=== PATIENT | male | born 1965 | race Caucasian/White ===

== ENCOUNTER → 2018-03-28 08:48 | Outpatient (CLI) | payer BC, SELFPAY ==
--- NOTE | 2018-03-28 09:19 | XR_ITS ---
XR foot RT min 3V COMPARISON: None HISTORY: Right foot pain, clinical suspicion of plantar fasciitis TECHNIQUE: AP lateral and oblique views FINDINGS: The tarsal bones metatarsals and phalanges all appear intact with no evidence of recent or old fracture. The plantar arch is normal. There are tiny spurs of the calcaneus at insertion of plantar tendon and Achilles tendon. The soft tissues are normal. IMPRESSION: Tiny calcaneal spurs otherwise negative right foot
== END ==
PROVIDERS: PCP Family Medicine; Visit Provider Family Medicine
DX: M72.2 Plantar fascial fibromatosis (principal)
CPT/HCPCS: 73630

== ENCOUNTER → 2022-12-08 23:57 | Outpatient (CLI) | payer BC, SELFPAY ==
[2022-12-09 00:59] LABS: Alanine Aminotransferase 27 U/L (12-78); Albumin Level 3.9 g/dl (3.5-5.0); Albumin/Globulin Ratio 1.4 (1.1-1.8); Alkaline Phosphatase 160 U/L (38-126); Aspartate Amino Transferase 25 U/L (17-59); Bilirubin,Total 0.4 mg/dl (0.2-1.3); Blood Urea Nitrogen 23 mg/dl (9-20); Calcium 9.7 mg/dl (8.4-10.2); Carbon Dioxide 31 mmol/L (22.0-30.0); Chloride 100 mmol/L (98-107); Chol/HDL Ratio 3.7 (1-3.5); Cholesterol 179 mg/dl (140-200); Estimated Glomerular Filt Rate 77 ml/min (>60); GFR (African American) 94 ML/MIN (>60); Globulin 2.7 g/dL (1.3-3.2); Glucose 247 mg/dl (74-100); HDL Cholesterol 49 mg/dl (40-60); Sodium 136 mmol/L (136-145); Total Protein,Serum 6.6 g/dl (6.3-8.2); Triglycerides 289 mg/dl (30-150); VLDL Cholesterol 58 mg/dL (0-40)
[2022-12-09 01:09] LABS: Direct LDL Cholesterol 86.04 mg/dL (100-129)
[2022-12-09 03:02] LABS: Hemoglobin A1C 11.7 % (4.0-6.0)
== END ==
PROVIDERS: PCP Family Medicine; Visit Provider Family Medicine
DX: E11.9 Type 2 diabetes mellitus without complications (principal); E78.1 Pure hyperglyceridemia; Z79.4 Long term (current) use of insulin
CPT/HCPCS: 80053; 80061; 83036

== ENCOUNTER → 2023-05-05 11:08 | Outpatient (CLI) | payer BC, SELFPAY ==
[2023-05-05 19:08] LABS: Alanine Aminotransferase 30 U/L (12-78); Albumin Level 4.1 g/dl (3.5-5.0); Albumin/Globulin Ratio 1.5 (1.1-1.8); Alkaline Phosphatase 151 U/L (38-126); Anion Gap 13.1 mEq/L (5-15); Aspartate Amino Transferase 25 U/L (17-59); Bilirubin,Total 0.5 mg/dl (0.2-1.3); Blood Urea Nitrogen 23 mg/dl (9-20); Calcium 9.2 mg/dl (8.4-10.2); Carbon Dioxide 26 mmol/L (22.0-30.0); Chloride 98 mmol/L (98-107); Chol/HDL Ratio 3.6 (1-3.5); Cholesterol 214 mg/dl (140-200); Estimated Glomerular Filt Rate 87 ml/min (>60); GFR (African American) 105 ML/MIN (>60); Globulin 2.7 g/dL (1.3-3.2); Glucose 236 mg/dl (74-100); HDL Cholesterol 60 mg/dl (40-60); Potassium 4.1 mmoL/L (3.5-5.1); Sodium 133 mmol/L (136-145); Total Protein,Serum 6.8 g/dl (6.3-8.2); Triglycerides 238 mg/dl (30-150); VLDL Cholesterol 48 mg/dL (0-40)
[2023-05-05 19:14] LABS: Basophils % 0.3 % (0.1-2.0); Eosinophils # 0.6 K/mm3 (0.0-0.4); Hematocrit 46.5 % (42.0-52.0); Hemoglobin 15.6 g/dL (14.1-18.0); Lymphocytes # 2.6 K/mm3 (0.7-4.5); Lymphocytes % 31.4 % (10-50); Mean Corpuscular HGB Conc 33.5 g/dL (31.8-35.4); Mean Corpuscular Volume 86.5 fl (80-94); Mean Platelet Volume 8.8 fl (7.4-10.4); Monocytes # 0.6 K/mm3 (0.1-1.0); Monocytes % 7.6 % (1.7-9.3); Neutrophils # 4.5 K/mm3 (1.8-7.8); Neutrophils % 53.8 % (37.0-80.0); Platelet Count 308 K/mm3 (142-424); Red Blood Count 5.38 M/mm3 (4.60-6.20); Red Cell Distribution Width 14.5 % (11.5-17.5); White Blood Count 8.3 K/mm3 (4.8-10.8)
[2023-05-05 19:21] LABS: Direct LDL Cholesterol 105.35 mg/dL (100-129)
[2023-05-05 19:40] LABS: Prostate Specific Ag Screen 0.9 ng/ml (0.0-4.0); Thyroid Stimulating Hormone 2.44 uIU/mL (0.465-4.68)
[2023-05-05 20:30] LABS: Hemoglobin A1C 12.3 % (4.0-6.0)
== END ==
PROVIDERS: PCP Family Medicine; Visit Provider Family Medicine
DX: E11.9 Type 2 diabetes mellitus without complications (principal); I10 Essential (primary) hypertension; Z79.4 Long term (current) use of insulin; Z79.899 Other long term (current) drug therapy
CPT/HCPCS: 80053; 80061; 83036; 84443; 85025; G0103

== ENCOUNTER 2023-11-15 19:03 | Outpatient (CLI) | payer BC, SELFPAY ==
[2023-11-15 23:32] LABS: Barbiturates Screen,Urine Negative ng/ml (<200)
[2023-11-15 23:34] LABS: Benzodiazepines Screen,Urine Positive ng/ml (<200); Cocaine Screen,Urine Negative ng/ml (<300)
[2023-11-15 23:35] LABS: Phencyclidine Screen,Urine Negative ng/ml (<25)
[2023-11-15 23:36] LABS: Methadone Screen,Urine Negative ng/ml (<300)
[2023-11-15 23:37] LABS: Opiate Screen,Urine Negative ng/ml (<300)
[2023-11-15 23:40] LABS: Cannabinoid Screen,Urine Negative ng/ml (<50)
[2023-11-18 19:05] LABS: Basophils % 0.3 % (0.1-2.0); Eosinophils # 0.2 K/mm3 (0.0-0.4); Eosinophils % 2.5 % (0.1-12.0); Hematocrit 48.2 % (42.0-52.0); Hemoglobin 16.3 g/dL (14.1-18.0); Lymphocytes % 24.5 % (10-50); Mean Corpuscular HGB Conc 33.8 g/dL (31.8-35.4); Mean Corpuscular Hemoglobin 30.6 pg (27.0-31.2); Mean Corpuscular Volume 90.5 fl (80-94); Mean Platelet Volume 9.4 fl (7.4-10.4); Monocytes # 0.6 K/mm3 (0.1-1.0); Monocytes % 6.9 % (1.7-9.3); Neutrophils # 5.5 K/mm3 (1.8-7.8); Neutrophils % 65.7 % (37.0-80.0); Platelet Count 325 K/mm3 (142-424); Red Blood Count 5.33 M/mm3 (4.60-6.20); Red Cell Distribution Width 13.9 % (11.5-17.5); White Blood Count 8.3 K/mm3 (4.8-10.8)
[2023-11-18 19:17] LABS: Alanine Aminotransferase 25 U/L (12-78); Albumin Level 3.7 g/dl (3.5-5.0); Albumin/Globulin Ratio 1.4 (1.1-1.8); Alkaline Phosphatase 106 U/L (38-126); Anion Gap 11.2 mEq/L (5-15); Aspartate Amino Transferase 28 U/L (17-59); Bilirubin,Total 0.4 mg/dl (0.2-1.3); Blood Urea Nitrogen 22 mg/dl (9-20); Calcium 9.2 mg/dl (8.4-10.2); Carbon Dioxide 27 mmol/L (22.0-30.0); Chloride 102 mmol/L (98-107); Chol/HDL Ratio 3.2 (1-3.5); Cholesterol 144 mg/dl (140-200); Estimated Glomerular Filt Rate 77 ml/min (>60); GFR (African American) 93 ML/MIN (>60); Globulin 2.6 g/dL (1.3-3.2); Glucose 127 mg/dl (74-100); HDL Cholesterol 45 mg/dl (40-60); Potassium 4.2 mmoL/L (3.5-5.1); Sodium 136 mmol/L (136-145); Total Protein,Serum 6.3 g/dl (6.3-8.2); Triglycerides 120 mg/dl (30-150); VLDL Cholesterol 24 mg/dL (0-40)
[2023-11-18 19:28] LABS: Direct LDL Cholesterol 79.27 mg/dL (100-129)
[2023-11-18 20:20] LABS: Hemoglobin A1C 8.9 % (4.0-6.0)
[2023-11-19 07:13] LABS: Amphetamine Positive (.); Amphetamine (GC/MS) 1577 ng/mL (Cutoff=500); Amphetamines Positive (.); Methamphetamine Positive (.); Methamphetamine (GC/MS) >3000 ng/mL (Cutoff=500)
== END 2023-11-15 23:59 ==
LOC: LAB.DROPOF 19:03
PROVIDERS: PCP Family Medicine; Visit Provider Family Medicine
DX: Z79.899 Other long term (current) drug therapy (principal); E11.65 Type 2 diabetes mellitus with hyperglycemia; E78.5 Hyperlipidemia, unspecified; Z79.4 Long term (current) use of insulin; Z79.84 Long term (current) use of oral hypoglycemic drugs; Z79.85 Long-term (current) use of injectable non-insulin antidiabetic drugs
CPT/HCPCS: 80053; 80061; 80307; 80324; 83036; 85025

== ENCOUNTER 2024-06-07 09:49 | Outpatient (CLI) | payer BC, SELFPAY ==
[2024-06-07 19:44] LABS: Hemoglobin A1C 8.5 % (4.0-6.0)
[2024-06-07 20:42] LABS: Albumin Level 3.6 g/dl (3.5-5.0); Chloride 104 mmol/L (98-107); Sodium 135 mmol/L (136-145)
[2024-06-07 20:43] LABS: Potassium 3.8 mmoL/L (3.5-5.1)
[2024-06-07 20:45] LABS: Alanine Aminotransferase 21 U/L (12-78); Albumin/Globulin Ratio 1.3 (1.1-1.8); Alkaline Phosphatase 116 U/L (38-126); Anion Gap 10.8 mEq/L (5-15); Aspartate Amino Transferase 22 U/L (17-59); Bilirubin,Total 0.6 mg/dl (0.2-1.3); Blood Urea Nitrogen 19 mg/dl (9-20); Carbon Dioxide 24 mmol/L (22.0-30.0); Cholesterol 166 mg/dl (140-200); Estimated Glomerular Filt Rate 87 ml/min (>60); GFR (African American) 105 ML/MIN (>60); Globulin 2.7 g/dL (1.3-3.2); Total Protein,Serum 6.3 g/dl (6.3-8.2); Triglycerides 173 mg/dl (30-150); VLDL Cholesterol 35 mg/dL (0-40)
[2024-06-07 20:46] LABS: Calcium 9.1 mg/dl (8.4-10.2); Chol/HDL Ratio 3.9 (1-3.5); Glucose 176 mg/dl (74-100); HDL Cholesterol 43 mg/dl (40-60)
[2024-06-07 20:59] LABS: Direct LDL Cholesterol 84.57 mg/dL (100-129)
[2024-06-07 21:20] LABS: Thyroid Stimulating Hormone 1.74 uIU/mL (0.465-4.68)
[2024-06-07 22:28] LABS: Vitamin B12 288 pg/mL (239-931)
== END 2024-06-07 23:59 | disposition home or self-care (01) ==
LOC: LAB.DROPOF 06-08 09:50
PROVIDERS: PCP Nurse Practitioner; Visit Provider Nurse Practitioner
DX: E11.9 Type 2 diabetes mellitus without complications (principal); Z79.4 Long term (current) use of insulin; I10 Essential (primary) hypertension; E78.1 Pure hyperglyceridemia; E66.01 Morbid (severe) obesity due to excess calories; Z68.41 Body mass index [BMI] 40.0-44.9, adult; F41.1 Generalized anxiety disorder; E78.2 Mixed hyperlipidemia
CPT/HCPCS: 80053; 80061; 82306; 82607; 83036; 84443

== ENCOUNTER 2024-12-04 08:30 | Outpatient (CLI) | payer BC, SELFPAY ==
[2024-12-04 19:51] LABS: Basophils % 0.3 % (0.1-2.0); Eosinophils # 0.4 K/mm3 (0.0-0.4); Eosinophils % 4.7 % (0.1-12.0); Hematocrit 49.3 % (42.0-52.0); Hemoglobin 16.8 g/dL (14.1-18.0); Lymphocytes # 2.4 K/mm3 (0.7-4.5); Lymphocytes % 27.6 % (10-50); Mean Corpuscular HGB Conc 34.1 g/dL (31.8-35.4); Mean Corpuscular Hemoglobin 29.5 pg (27.0-31.2); Mean Corpuscular Volume 86.6 fl (80-94); Mean Platelet Volume 10.7 fl (7.4-10.4); Monocytes # 0.8 K/mm3 (0.1-1.0); Monocytes % 8.7 % (1.7-9.3); Neutrophils % 58.5 % (37.0-80.0); Platelet Count 310 K/mm3 (142-424); Red Blood Count 5.69 M/mm3 (4.60-6.20); Red Cell Distribution Width 13.5 % (11.5-17.5); White Blood Count 8.6 K/mm3 (4.8-10.8)
[2024-12-04 20:02] LABS: Creatinine,Urine Random 31 mg/dL (Not Estab.)
[2024-12-04 20:57] LABS: Alanine Aminotransferase 25 U/L (12-78); Albumin Level 3.7 g/dl (3.5-5.0); Albumin/Globulin Ratio 1.7 (1.1-1.8); Alkaline Phosphatase 105 U/L (38-126); Anion Gap 12.1 mEq/L (5-15); Aspartate Amino Transferase 24 U/L (17-59); Bilirubin,Total 0.3 mg/dl (0.2-1.3); Blood Urea Nitrogen 26 mg/dl (9-20); Calcium 9.6 mg/dl (8.4-10.2); Carbon Dioxide 27 mmol/L (22.0-30.0); Chloride 103 mmol/L (98-107); Chol/HDL Ratio 4.6 (1-3.5); Cholesterol 201 mg/dl (140-200); Estimated Glomerular Filt Rate 87 ml/min (>60); GFR (African American) 105 ML/MIN (>60); Globulin 2.2 g/dL (1.3-3.2); Glucose 105 mg/dl (74-100); HDL Cholesterol 44 mg/dl (40-60); Potassium 4.1 mmoL/L (3.5-5.1); Sodium 138 mmol/L (136-145); Total Protein,Serum 5.9 g/dl (6.3-8.2); Triglycerides 170 mg/dl (30-150); VLDL Cholesterol 34 mg/dL (0-40)
[2024-12-04 21:17] LABS: Microalbumin/Creatinine Ratio 5341.6
[2024-12-04 21:20] LABS: Direct LDL Cholesterol 108.34 mg/dL (100-129)
[2024-12-04 21:47] LABS: Prostate Specific Ag Screen 1.1 ng/ml (0.0-4.0); Thyroid Stimulating Hormone 2.44 uIU/mL (0.465-4.68)
== END 2024-12-04 23:59 | disposition home or self-care (01) ==
LOC: LAB.DROPOF 12-05 09:38
PROVIDERS: PCP Family Medicine; Visit Provider Family Medicine
DX: E11.9 Type 2 diabetes mellitus without complications (principal); Z79.4 Long term (current) use of insulin; I10 Essential (primary) hypertension
CPT/HCPCS: 80053; 80061; 82043; 82570; 84443; 85025; G0103

== ENCOUNTER 2025-04-27 08:26 | Outpatient (CLI) | payer BC, SELFPAY ==
[2025-04-27 18:37] LABS: Basophils % 0.3 % (0.1-2.0); Eosinophils # 0.2 Kmm3 (0.0-0.4); Hemoglobin 15.7 g/dL (14.1-18.0); Immature Granulocytes # 0.03 10^3uL; Immature Granulocytes % 0.3 %; Lymphocytes # 2.4 K/mm3 (0.7-4.5); Lymphocytes % 26.3 % (10-50); Mean Corpuscular HGB Conc 34.1 g/dL (31.8-35.4); Mean Corpuscular Hemoglobin 29.7 pg (27.0-31.2); Mean Corpuscular Volume 87.1 fl (80-94); Mean Platelet Volume 10.5 fl (7.4-10.4); Monocytes # 0.9 K/mm3 (0.1-1.0); Monocytes % 10.2 % (1.7-9.3); Neutrophils # 5.5 K/mm3 (1.8-7.8); Neutrophils % 60.9 % (37.0-80.0); Nucleated Red Blood Cells # 0 10^3/uL; Nucleated Red Blood Cells % 0 %; Platelet Count 354 K/mm3 (142-424); Red Blood Count 5.28 M/mm3 (4.60-6.20); White Blood Count 9.1 K/mm3 (4.8-10.8)
[2025-04-27 19:01] LABS: Hemoglobin A1C 9.6 % (4.0-6.0)
[2025-04-27 19:02] LABS: Alanine Aminotransferase 17 U/L (12-78); Aspartate Amino Transferase 20 U/L (17-59); Blood Urea Nitrogen 20 mg/dl (9-20); Carbon Dioxide 25 mmol/L (22.0-30.0); Cholesterol 120 mg/dl (140-200); Estimated Glomerular Filt Rate 76 ml/min (>60); GFR (African American) 93 ML/MIN (>60); Total Protein,Serum 6.3 g/dl (6.3-8.2); Triglycerides 153 mg/dl (30-150); VLDL Cholesterol 31 mg/dL (0-40)
[2025-04-27 19:03] LABS: Alkaline Phosphatase 86 U/L (38-126); Bilirubin,Total 0.4 mg/dl (0.2-1.3); Calcium 9.5 mg/dl (8.4-10.2); Chol/HDL Ratio 2.9 (1-3.5); Glucose 58 mg/dl (74-100); HDL Cholesterol 41 mg/dl (40-60)
[2025-04-27 19:07] LABS: Albumin Level 4.1 g/dl (3.5-5.0); Albumin/Globulin Ratio 1.9 (1.1-1.8); Globulin 2.2 g/dL (1.3-3.2)
[2025-04-27 19:08] LABS: Potassium 3.6 mmoL/L (3.5-5.1); Sodium 137 mmol/L (136-145)
[2025-04-27 19:14] LABS: Direct LDL Cholesterol 46.49 mg/dL (100-129)
[2025-04-27 19:33] LABS: Thyroid Stimulating Hormone 1.56 uIU/mL (0.465-4.68)
[2025-04-27 19:38] LABS: 25-OH Vitamin D, Total 13.7 ng/mL (30-100)
[2025-04-27 19:47] LABS: Anion Gap 16.6 mEq/L (5-15); Chloride 99 mmol/L (98-107)
[2025-04-27 20:10] LABS: Creatinine,Urine Random 76 mg/dL (Not Estab.); Microalbumin > 1140.000 mg/L (0-16.7)
[2025-04-27 20:40] LABS: Vitamin B12 257 pg/mL (239-931)
--- OUTSIDE RECORDS SUMMARY | 2025-04-28 08:28 | XMS_ITS ---
Author Organization Unknown Medications Medication Instructions Effective Dates (start - stop) Status simvastatin 20 MG Oral Tablet 20 22-09-09:00:00.000+00 :00 - Completed simvastatin 40 MG Oral Tablet 20 23-05-05:00:00.000+00 :00 - Completed sertraline 100 MG Oral Tablet 20 22-10-17:00:00.000+00 :00 - Completed sertraline 100 MG Oral Tablet 20 22-06-23:00:00.000+00 :00 - Completed simvastatin 40 MG Oral Tablet 20 23-03-08:00:00.000+00 :00 - Completed lisinopril 40 MG Oral Tablet 01-05-17:00:00.000+00 :00 - Completed lisinopril 40 MG Oral Tablet 12-31-00:00:00.000+00 :00 - Completed sertraline 100 MG Oral Tablet 20 22-01-28:00:00.000+00 :00 - Completed sertraline 100 MG Oral Tablet 20 23-07-27:00:00.000+00 :00 - Completed sertraline 100 MG Oral Tablet 20 23-04-05:00:00.000+00 :00 - Completed sertraline 100 MG Oral Tablet 20 23-11-18:00:00.000+00 :00 - Completed lisinopril 40 MG Oral Tablet 202 01-01-14:00:00.000+00 :00 - Completed lisinopril 40 MG Oral Tablet 202 01-05-20:00:00.000+00 :00 - Completed sertraline 100 MG Oral Tablet 20 24-12-15:00:00.000+00 :00 - Completed simvastatin 40 MG Oral Tablet 20 21-02-10:00:00.000+00 :00 - Completed simvastatin 40 MG Oral Tablet 20 21-01-14:00:00.000+00 :00 - Completed lisinopril 40 MG Oral Tablet 202 01-04-08:00:00.000+00 :00 - Completed lisinopril 40 MG Oral Tablet 202 12-10-26:00:00.000+00 :00 - Completed lisinopril 40 MG Oral Tablet 202 01-02-10:00:00.000+00 :00 - Completed simvastatin 40 MG Oral Tablet 20 23-04-05:00:00.000+00 :00 - Completed sertraline 100 MG Oral Tablet 22-09-09:00:00.000+00 :00 - Completed glimepiride 4 MG Oral Tablet 202 12-09-22:00:00.000+00 :00 - Completed glimepiride 4 MG Oral Tablet 202 01-01-27:00:00.000+00 :00 - Completed amlodipine 5 MG Oral Tablet 2021:00:00.000+00 :00 - Completed alprazolam 1 MG Oral Tablet 2021:00:00.000+00 :00 - Completed amlodipine 10 MG Oral Tablet 01-05-05:00:00.000+00 :00 - Completed amlodipine 5 MG Oral Tablet 2022:00:00.000+00 :00 - Completed glimepiride 4 MG Oral Tablet 202 12-30-22:00:00.000+00 :00 - Completed glimepiride 4 MG Oral Tablet 202 12-12-08:00:00.000+00 :00 - Completed glimepiride 4 MG Oral Tablet 202 01-01-20:00:00.000+00 :00 - Completed amlodipine 5 MG Oral Tablet 2022:00:00.000+00 :00 - Completed glimepiride 4 MG Oral Tablet 202 12-08-24:00:00.000+00 :00 - Completed amlodipine 5 MG Oral Tablet 2022:00:00.000+00 :00 - Completed glimepiride 4 MG Oral Tablet 202 12-11-12T00:00:00.000+00 :00 - Completed amlodipine 5 MG Oral Tablet 2021:00:00.000+00 :00 - Completed glimepiride 4 MG Oral Tablet 12-13-16:00:00.000+00 :00 - Completed amlodipine 5 MG Oral Tablet 2022:00:00.000+00 :00 - Completed amlodipine 5 MG Oral Tablet 2021:00:00.000+00 :00 - Completed amlodipine 5 MG Oral Tablet 2021:00:00.000+00 :00 - Completed amlodipine 5 MG Oral Tablet 2022:00:00.000+00 :00 - Completed amlodipine 5 MG Oral Tablet 2021:00:00.000+00 :00 - Completed - 1911-03-27X15:00 :00.000+00 :00 - Completed glimepiride 4 MG Oral Tablet 01-03-25:00:00.000+00 :00 - Completed tramadol hydrochloride 50 MG Oral Tablet 8223-30-36C63:00:00.000+00 :00 - Completed - 5402-72-12R81:00 :00.000+00 :00 - Completed - 3672-92-57B93:00 :00.000+00 :00 - Completed tramadol hydrochloride 50 MG Oral Tablet 4865-78-01B78:00:00.000+00 :00 - Completed - 8494-00-79Y78:00 :00.000+00 :00 - Completed alprazolam 1 MG Oral Tablet 2021:00:00.000+00 :00 - Completed tramadol hydrochloride 50 MG Oral Tablet 0999-81-10B31:00:00.000+00 :00 - Completed tramadol hydrochloride 50 MG Oral Tablet 1111-41-03V37:00:00.000+00 :00 - Completed tramadol hydrochloride 50 MG Oral Tablet 3722-56-54S76:00:00.000+00 :00 - Completed tramadol hydrochloride 50 MG Oral Tablet 3347-11-39N12:00:00.000+00 :00 - Completed alprazolam 1 MG Oral Tablet 2021:00:00.000+00 :00 - Completed - 6217-26-97V37:00 :00.000+00 :00 - Completed sertraline 100 MG Oral Tablet 23-03-01:00:00.000+00 :00 - Completed tramadol hydrochloride 50 MG Oral Tablet 6068-73-19E19:00:00.000+00 :00 - Completed tramadol hydrochloride 50 MG Oral Tablet 0801-59-90T76:00:00.000+00 :00 - Completed - 3475-58-63M68:00 :00.000+00 :00 - Completed tramadol hydrochloride 50 MG Oral Tablet 8590-88-55T86:00:00.000+00 :00 - Completed tramadol hydrochloride 50 MG Oral Tablet 7171-71-89I43:00:00.000+00 :00 - Completed glimepiride 4 MG Oral Tablet 01-04-23:00:00.000+00 :00 - Completed glimepiride 4 MG Oral Tablet 01-03-01:00:00.000+00 :00 - Completed alprazolam 1 MG Oral Tablet 2021:00:00.000+00 :00 - Completed alprazolam 1 MG Oral Tablet 2022:00:00.000+00 :00 - Completed alprazolam 1 MG Oral Tablet 2022:00:00.000+00 :00 - Completed alprazolam 1 MG Oral Tablet 2022:00:00.000+00 :00 - Completed alprazolam 1 MG Oral Tablet 2021:00:00.000+00 :00 - Completed alprazolam 1 MG Oral Tablet 2022:00:00.000+00 :00 - Completed alprazolam 1 MG Oral Tablet 2022:00:00.000+00 :00 - Completed alprazolam 1 MG Oral Tablet 2021:00:00.000+00 :00 - Completed 3 ML insulin glargine 100 UN T/ML Pen Injector [[employer]] 8519-56-80J99:00:00.000+00 :00 - Completed gemfibrozil 600 MG Oral Tablet 2 544-28-32W48:00:00.000+00 :00 - Completed 3 ML insulin glargine 100 UN T/ML Pen Injector [[employer]romed[employer]aglar] 1629-34-39C38:00:00.000+00 :00 - Completed sertraline 100 MG Oral Tablet 23-05-05:00:00.000+00 :00 - Completed gemfibrozil 600 MG Oral Tablet 203-74-53S92:00:00.000+00 :00 - Completed 3 ML insulin glargine 100 UN T/ML Pen Injector [[employer]ed[employer]] 9449-09-13B51:00:00.000+00 :00 - Completed 3 ML insulin glargine 100 UN T/ML Pen Injector [[employer]] 4442-06-23W59:00:00.000+00 :00 - Completed 0.5 ML dulaglutide 3 MG/ML Auto-Injector [Trulicity] 2525-83-20X99:00:00.000+00 :00 - Completed 0.5 ML dulaglutide 3 MG/ML Auto-Injector [Qumuulicity] 3244-23-66T31:00:00.000+00 :00 - Completed 0.5 ML dulaglutide 3 MG/ML Auto-Injector [Trulicity] 3088-92-68R12:00:00.000+00 :00 - Completed 3 ML insulin glargine 100 UN T/ML Pen Injector [[employer]] 4234-50-78K91:00:00.000+00 :00 - Completed 0.5 ML dulaglutide 3 MG/ML Auto-Injector [[employer]] 5965-02-01I98:00:00.000+00 :00 - Completed gemfibrozil 600 MG Oral Tablet 2 835-75-45S63:00:00.000+00 :00 - Completed 3 ML insulin glargine 100 UN T/ML Pen Injector [[employer]romed[employer]aglar] 3777-61-91U80:00:00.000+00 :00 - Completed 0.5 ML dulaglutide 3 MG/ML Auto-Injector [Trulicity] 4313-82-07R88:00:00.000+00 :00 - Completed 0.5 ML dulaglutide 3 MG/ML Auto-Injector [Trulicity] 6675-03-89G82:00:00.000+00 :00 - Completed 0.5 ML dulaglutide 3 MG/ML Auto-Injector [Trulicity] 7318-44-37G32:00:00.000+00 :00 - Completed gemfibrozil 600 MG Oral Tablet 2 237-06-59N35:00:00.000+00 :00 - Completed 3 ML insulin glargine 100 UN T/ML Pen Injector [[employer]] 1056-61-96C07:00:00.000+00 :00 - Completed gemfibrozil 600 MG Oral Tablet 2 587-21-09E74:00:00.000+00 :00 - Completed 0.5 ML dulaglutide 3 MG/ML Auto-Injector [Trulicity] 4316-50-73H52:00:00.000+00 :00 - Completed 3 ML insulin glargine 100 UN T/ML Pen Injector [[employer]] 0351-05-19J53:00:00.000+00 :00 - Completed 3 ML insulin glargine 100 UN T/ML Pen Injector [[employer]] 5055-19-60Y07:00:00.000+00 :00 - Completed cephalexin 500 MG Oral Capsule 2 062-80-74R00:00:00.000+00 :00 - Completed 3 ML insulin glargine 100 UN T/ML Pen Injector [[employer]] 9026-11-97Q45:00:00.000+00 :00 - Completed 3 ML insulin glargine 100 UN T/ML Pen Injector [[employer]ed[employer]lar] 6035-58-46Y40:00:00.000+00 :00 - Completed gemfibrozil 600 MG Oral Tablet 2 571-20-87S43:00:00.000+00 :00 - Completed gemfibrozil 600 MG Oral Tablet 2 138-00-92Y63:00:00.000+00 :00 - Completed gemfibrozil 600 MG Oral Tablet 2 288-17-32E27:00:00.000+00 :00 - Completed simvastatin 20 MG Oral Tablet 20 22-08-12:00:00.000+00 :00 - Completed simvastatin 20 MG Oral Tablet 20 23-07-12:00:00.000+00 :00 - Completed simvastatin 20 MG Oral Tablet 20 22-06-13:00:00.000+00 :00 - Completed gemfibrozil 600 MG Oral Tablet 2 885-96-40M12:00:00.000+00 :00 - Completed gemfibrozil 600 MG Oral Tablet 2 524-61-88A21:00:00.000+00 :00 - Completed simvastatin 20 MG Oral Tablet 20 22-10-17:00:00.000+00 :00 - Completed simvastatin 20 MG Oral Tablet 20 23-11-17:00:00.000+00 :00 - Completed simvastatin 20 MG Oral Tablet 20 24-12-15:00:00.000+00 :00 - Completed gemfibrozil 600 MG Oral Tablet 2 627-64-79X30:00:00.000+00 :00 - Completed hydrochlorothiazide 25 MG / triamterene 37.5 MG Oral Tablet 1269-46-81O41:00:00.00 0+00 :00 - Completed hydrochlorothiazide 25 MG / triamterene 37.5 MG Oral Tablet 2682-46-88T22:00:00.00 0+00 :00 - Completed hydrochlorothiazide 25 MG / triamterene 37.5 MG Oral Tablet 7116-21-92Y52:00:00.00 0+00 :00 - Completed hydrochlorothiazide 25 MG / triamterene 37.5 MG Oral Tablet 2943-33-81E55:00:00.00 0+00 :00 - Completed 24 HR dapagliflozin 5 MG / m etformin hydrochloride 1000 MG Extended Release Oral Tablet [Xigduo] 3224-68-17D51:00:00.000+0 0 :00 - Completed 24 HR dapagliflozin 5 MG / m etformin hydrochloride 1000 MG Extended Release Oral Tablet [Xigduo] 9686-29-04L20:00:00.000+0 0 :00 - Completed 24 HR dapagliflozin 5 MG / m etformin hydrochloride 1000 MG Extended Release Oral Tablet [Xigduo] 0886-02-58C18:00:00.000+0 0 :00 - Completed hydrochlorothiazide 25 MG / triamterene 37.5 MG Oral Tablet 4414-90-35Q58:00:00.00 0+00 :00 - Completed 24 HR dapagliflozin 5 MG / m etformin hydrochloride 1000 MG Extended Release Oral Tablet [Xigduo] 2555-34-76R51:00:00.000+0 0 :00 - Completed hydrochlorothiazide 25 MG / triamterene 37.5 MG Oral Tablet 4351-04-02S42:00:00.00 0+00 :00 - Completed hydrochlorothiazide 25 MG / triamterene 37.5 MG Oral Tablet 9214-34-15I02:00:00.00 0+00 :00 - Completed hydrochlorothiazide 25 MG / triamterene 37.5 MG Oral Tablet 5260-23-88P39:00:00.00 0+00 :00 - Completed 24 HR dapagliflozin 5 MG / m etformin hydrochloride 1000 MG Extended Release Oral Tablet [Xigduo] 6701-10-74S43:00:00.000+0 0 :00 - Completed 24 HR dapagliflozin 5 MG / m etformin hydrochloride 1000 MG Extended Release Oral Tablet [Xigduo] 2245-40-47Y19:00:00.000+0 0 :00 - Completed hydrochlorothiazide 25 MG / triamterene 37.5 MG Oral Tablet 4732-79-40D04:00:00.00 0+00 :00 - Completed hydrochlorothiazide 25 MG / triamterene 37.5 MG Oral Tablet 7063-29-60Z63:00:00.00 0+00 :00 - Completed 24 HR dapagliflozin 5 MG / m etformin hydrochloride 1000 MG Extended Release Oral Tablet [Xigduo] 4212-09-86D98:00:00.000+0 0 :00 - Completed 24 HR dapagliflozin 5 MG / m etformin hydrochloride 1000 MG Extended Release Oral Tablet [Xigduo] 4068-30-64C28:00:00.000+0 0 :00 - Completed 24 HR dapagliflozin 5 MG / m etformin hydrochloride 1000 MG Extended Release Oral Tablet [Xigduo] 9960-93-55L71:00:00.000+0 0 :00 - Completed hydrochlorothiazide 25 MG / triamterene 37.5 MG Oral Tablet 6955-78-81M05:00:00.00 0+00 :00 - Completed sulfamethoxazole 800 MG / trimethoprim 160 MG Oral Tablet 7875-61-77O26:00:00.00 0+00 :00 - Completed hydrochlorothiazide 25 MG / triamterene 37.5 MG Oral Tablet 7657-91-18O62:00:00.00 0+00 :00 - Completed 24 HR dapagliflozin 5 MG / m etformin hydrochloride 1000 MG Extended Release Oral Tablet [Xigduo] 4987-11-19Z08:00:00.000+0 0 :00 - Completed 24 HR dapagliflozin 5 MG / m etformin hydrochloride 1000 MG Extended Release Oral Tablet [Xigduo] [id number]:00:00.000+0 0 :00 - Completed Patient Care team information Name Category Status Period Participants - - Proposed period not known -
--- OUTSIDE RECORDS SUMMARY | 2025-04-28 08:28 | XMS_ITS | Clinical Summary ---
Author Organization [facility] [place] Address [address] [place] [address] Phone Care Team Providers Care Pipe Crew Foreman Name Role Phone Unavailable Primary Care Provider Unavailabl e Allergies No known active allergies Medications gemfibroziL (LOPID) 600 mg Oral Tablet Take 600 mg by mouth 2 times daily. Active dapagliflozin-m etFORMIN 5-1,000 mg Oral tablet, IR & ER, biphasic 24hr Take 1,000 Tablets by mouth daily. Active lansoprazole (PREVACID) 15 mg Oral Capsule, Delayed Release(E.C.) Take 15 mg by mouth daily. Active triamterene-hyd rochlorothiazid e (MAXZIDE-25) 37.5-25 mg Oral Tablet Take 1 Tablet by mouth daily. Active amLODIPine-kevin zepril (LOTREL) 10-40 mg Oral Capsule Take 1 Capsule by mouth daily. Active sertraline (ZOLOFT) 100 mg Oral Tablet Take 100 mg by mouth daily. Active nebivoloL (BYSTOLIC) 10 mg Oral Tablet Take 10 mg by mouth daily. Active simvastatin (ZOCOR) 20 mg Oral Tablet Take 20 mg by mouth nightly. Active insulin glargine (LANTUS) 100 unit/mL (3 mL) SubQ Insulin Pen Subcutaneous (Inject under the skin) 100 Units nightly. Active dulaglutide (TRULICITY) 0.75 mg/0.5 mL SubQ Pen Injector Subcutaneous (Inject under the skin) 0.75 mg once a week. Active Surgical History Surgery Date Site/Laterality Comments COLONOSCOPY 08/23/2024 Medical History Medical History Date Comments Sleep apnea Hypertension Hyperlipidemia Diabetes mellitus (HCC) Generalized anxiety disorder Social History Tobacco Use Types Packs/Day Years Used Date Smoking Tobacco: Never Smokeless Tobacco: Never Tobacco Cessation:Counseling Given: Not Answered Alcohol Use Standard Drinks/Week Comments Never 0 (1 standard drink = 0.6 oz pur e alcohol) Sex and Gender Information Value Date Recorded Sex Assigned at Not on file Legal Sex Male 2:32 AM EDT Gender Identity Not on file Sexual Orientation Not on file Obstetrics History Last Filed Vital Signs Vital Sign Reading Time Taken Comments Blood Pressure 150/86 08/23/2024 4:15 PM EDT Pulse 50 08/23/2024 4:15 PM EDT Temperature 36.8 C (98.2 F) 08/23/2024 3:55 PM EDT Respiratory Rate 16 08/23/2024 4:15 PM EDT Oxygen Saturation 96% 08/23/2024 4:15 PM EDT Inhaled Oxygen Concentration - - Weight 135.3 kg (298 lb 4.8 oz) 08/23/2024 1:44 PM EDT Height 182.9 cm (6') 08/23/2024 1:44 PM EDT Body Mass Index 40.46 08/23/2024 1:44 PM EDT Plan of Treatment Health Maintenance Due Date Last Done Comments Annual Wellness Exam 1969 DTaP/TDaP/Td (5 - Tdap) 04/03/1977 04/02/19 77, 05/24/1972, 03/27/1969, Additional history exists Cologuard 2011 FIT 2011 Sigmoidoscopy 2011 Virtual Colonography 2011 Pneumococcal Vaccine 50+ (1 of 1 - PCV) 02/08/2016 Zoster (1 of 2) 02/08/2016 COVID-19 Vaccine (4 - season) 2024 10/17/2021, 01/28/2021, 12/31/2020 Influenza Vaccine (Season Ended) 2025 09/03/2021, 07/22/2019 Colon Cancer Screening 08/23/2027 Colonoscopy 08/23/2027 08/23/2024 Hepatitis B Vaccine Completed 12/25/1993, 07/22/1993, 06/24/1993 Meningococcal B Vaccine Aged Out No l onger eligible based on patient's age to complete this topic Procedures Procedure Name Priority Date/Time Associated Diagnosis Comments COLONOSCOPY Routine 08/23/2024 3:52 PM EDT Positive colorectal cancer screening using Cologuard test from Last 3 Months or Most Recently Relevant to Health Maintenance Results * COLONOSCOPY (08/23/2024 3:52 PM EDT) Anatomical Region Laterality Modality Endoscopy Narrative 08/23/2024 3:53 PM EDT Table formatting from the original result was not included. Findings The bowel prep quality was fair, made good after additional irrigation and suction. Two 2 mm polyps in the ascending colon; performed cold forceps biopsy with complete removal One 3 mm polyp in the ascending colon; performed cold snare with complete removal and retrieved specimen Few diverticula of mild severity in the hepatic flexure and splenic flexure One 6 mm polyp in the splenic flexure; performed cold snare with complete removal and retrieved specimen Internal medium hemorrhoids Recommendation - Follow up pathology results. A pathology report should be available in MyChart in ~1 week. - An additional MyChart note with further recommendations should be available 1-2 weeks after the pathology report. - IF YOU DO NOT RECEIVE THIS INFORMATION VIA MYCHART OR OFFICE PHONE CALL WITHIN 2-3 WEEKS, PLEASE CALL OUR OFFICE FOR FINDINGS & FINAL RECOMMENDATIONS. - Interval to next Colonoscopy will be based upon histology of polyp(s). Pre-Procedure Diagnosis / Indication Positive colorectal cancer screening using Cologuard test Post-Procedure Diagnosis Positive colorectal cancer screening using Cologuard test Staff Staff Role Monica Diallo RN Merchandise Execution Leader ARELY Manzo CRNA, MD PHD Performing Provider Sabino Justice DO Anesthesiologist Medications See Anesthesia Record. Preprocedure A history and physical has been performed, and patient medication allergies have been reviewed. The patient's tolerance of previous anesthesia has been reviewed. The risks and benefits of the procedure and the sedation options and risks were discussed with the patient. All questions were answered and informed consent obtained. ASA 2 - Patient with mild systemic disease Details of the Procedure The patient underwent monitored anesthesia care, which was administered by an anesthesia professional. The patient's blood pressure, heart rate, level of consciousness, oxygen, respirations, ECG and ETCO2 were monitored throughout the procedure. A digital rectal exam was performed. The scope was introduced through the anus and advanced to the cecum. Retroflexion was performed in the rectum. Bowel prep was adequate. The patient's estimated blood loss was minimal (<5 mL). The procedure was moderately difficult due to loops in the digestive tract. In response to procedure difficulty, water immersion technqiue was employed. The patient tolerated the procedure well. There were no apparent adverse events. Patient provided education and educated on specific discharge instructions. Patient educated on medications given during the procedure and new medications for discharge. Patient verbalizes understanding of discharge education. Patient stable and awaiting transport for discharge. Events Procedure Events Event Event Time ENDO SCOPE IN TIME 08/23/2024 3:25 PM ENDO CECUM REACHED 08/23/2024 3:31 PM Specimens ID Type Source Tests Collected by Time 1 : Ascending colon polyp via cold snare Tissue Large Intestine, Right/Ascending Colon PATHOLOGY TISSUE REQUEST Filiberto Rg MD PHD 08/23/2024 1536 2 : Splenic flexure polyp via cold snare Tissue Splenic flexure PATHOLOGY TISSUE REQUEST Filiberto Rg MD PHD 08/23/2024 1546 Anesthesia Event Time In Patient In - Proc. Room 03:17 PM Isis Mansfield MD ENDOSCOPY PROCEDUR E ORDERABLES Final Result from Last 3 Months or Most Recently Relevant to Health Maintenance Insurance [facility] [employer]
== END 2025-04-27 23:59 | disposition home or self-care (01) ==
LOC: LAB 04-28 08:27
PROVIDERS: PCP Nurse Practitioner; Visit Provider Nurse Practitioner
DX: G47.33 Obstructive sleep apnea (adult) (pediatric) (principal); E78.2 Mixed hyperlipidemia; E66.01 Morbid (severe) obesity due to excess calories; E11.9 Type 2 diabetes mellitus without complications; I10 Essential (primary) hypertension; R52 Pain, unspecified; Z79.4 Long term (current) use of insulin
CPT/HCPCS: 80053; 80061; 82043; 82306; 82570; 82607; 83036; 84443; 85025